=== PATIENT | male | born 1950 | race Caucasian/White ===

== ENCOUNTER 2019-09-30 15:35 | Emergency (ER) | payer MEDICARE, OTHER ==
[~2019-09-30] VITALS: Ht 182.9 cm; Wt 78.0 kg
[2019-09-30 16:04] LABS: BASOPHILS # (AUTO) 0.1 K/uL (0.0-8.0); BASOPHILS % (AUTO) 1.1 % (0.0-2.0); EOSINOPHILS # (AUTO) 0.1 K/uL (0.0-0.7); EOSINOPHILS % (AUTO) 1.2 % (0.0-7.0); HEMATOCRIT 45.9 % (36.7-47.1); HEMOGLOBIN 15.6 g/dL (12.5-16.3); LYMPHOCYTES # (AUTO) 4.1 K/uL (20.0-40.0); LYMPHOCYTES % (AUTO) 35.3 % (20.5-51.5); MEAN CORPUSCULAR HEMOGLOBIN 29.8 uug (23.8-33.4); MEAN CORPUSCULAR HGB CONC 34 g/dL (32.5-36.3); MEAN CORPUSCULAR VOLUME 87.9 fL (73.0-96.2); MONOCYTES # (AUTO) 0.8 K/uL (2.0-10.0); MONOCYTES % (AUTO) 6.8 % (0.0-11.0); NEUTROPHILS # (AUTO) 6.5 K/uL (1.8-8.9); NEUTROPHILS % (AUTO) 55.6 % (38.5-71.5); PLATELET COUNT (AUTO) 252 K/uL (152-348); RED BLOOD CELL COUNT(AUTO) 5.22 MIL/uL (4.06-5.63); WHITE BLOOD COUNT (AUTO) 11.7 K/uL (3.6-10.2)
[2019-09-30 16:11] LABS: CARBON DIOXIDE 29 mmol/L (21-32); CHLORIDE 105 mmol/L (98-107); CREATININE 1.6 mg/dL (0.6-1.3); GLUCOSE 111 mg/dL (74-106); POTASSIUM 3.9 mmol/L (3.5-5.1); UREA NITROGEN, BLOOD 22 mg/dL (7-18)
--- NOTE | 2019-09-30 16:13 | NUR ---
PATIENT IS FROM [facility]. HE IS A/A/OX3 IN NO DISTRESS. STATES HE HAS AN INFECTION ON HIS THUMB AND WAS ON ANTIBIOTICS FOR IT WHICH HE BELIEVED WAS 'TOO MUCH".
[2019-09-30 16:16] LABS: ALANINE AMINOTRANSFERASE 29 U/L (16-63); ALKALINE PHOSPHATASE 76 U/L (50-136); ASPARTATE AMINOTRANSFERASE 23 U/L (15-37); BILIRUBIN,DIRECT 0.1 mg/dL (0.0-0.2); BILIRUBIN,TOTAL 0.3 mg/dL (0.2-1.0); TOTAL PROTEIN, SERUM 7.4 g/dL (6.4-8.2)
[2019-09-30 16:17] LABS: ACETAMINOPHEN < 2.0 ug/mL (10-30)
[2019-09-30 16:18] LABS: ETHANOL < 3 MG/DL (0-0)
--- NOTE | 2019-09-30 16:30 | NUR ---
PATIENT STATES HE HAS 2 DAUGHTERS AND WANTS TO SEE THEM ONCE HE IS HEALED FROM HIS HEART SURGERY. STATES HE DOES NOT UNDERSTAND WHY HE IS IN THE HOSPITAL. I TOLD HIM THERE IS REPORT OF HIM NOT EATING OR TAKING HIS MEDICATIONS AND HE SAID HE ATE TODAY AND EATS ON "MY SCHEDULE" AND THE ONLY MEDICINE HE REFUSED WAS ANTIBIOTIC WHICH HE FELT CAUSED HIM A FEW EPISODES OF DIARRHEA. I ASKED HIM IF HE HAS PLANS TO HURT HIMSELF OR NOT CARE FOR HIMSELF AND HE SAID "NO WAY, WHY WOULD I HAVE SURGERY IF I DONT WANT TO BE OK? I HAVE FAMILY AND LOVE THEM AND WANT TO SEE THEM ONCE IM RELEASED". TONY ASTER IS AWARE OF REASON WHY HE WAS SENT HERE AND IS APPROVING FOR HIM TO GO BACK TO [place] BASED ON HER AND DR CHATMAN EVALUATION AND MEDICAL SCREENING EXAM. I CALLED [facility] AND NOTIFIED THE NURSING STAFF THAT HE WILL BE RETURNING AND THAT EXAM WAS COMPLETED BY AND OTHERS....
[2019-09-30] MEDS ORDERED: ALPR0.255 PO (16:36)
[2019-09-30] MEDS ORDERED: BUPR-319 PO (16:36)
[2019-09-30] MEDS ORDERED: ASPI-612 PO (16:36)
[2019-09-30] MEDS ORDERED: QUET100T PO (16:36)
[2019-09-30] MEDS ORDERED: TRAZ-182 PO (16:36)
[2019-09-30] MEDS ORDERED: TADA5TAB2 PO (16:36)
[2019-09-30] MEDS ORDERED: NAPR-1192 PO (16:36)
[2019-09-30] MEDS ORDERED: ICOS1CAP PO (16:36)
[2019-09-30] MEDS ORDERED: ESOM40CA PO (16:36)
[2019-09-30] MEDS ORDERED: LEVA0.6320 IH (16:36)
[2019-09-30] MEDS ORDERED: LOVA20TA2 PO (16:36)
[2019-09-30] MEDS ORDERED: FINA5TAB11 PO (16:36)
[2019-09-30] MEDS ORDERED: CEPH500C2 PO (16:36)
[2019-09-30] MEDS ORDERED: EZET10TA15 PO (16:36)
[2019-09-30] MEDS ORDERED: ZOLP10TA2 PO (16:36)
[2019-09-30] MEDS ORDERED: ACET-73 PO (16:36)
[2019-09-30] MEDS ORDERED: METO25TA6 PO (16:36)
[2019-09-30] MEDS ORDERED: TRIA60LO8 TP (16:36)
[2019-09-30] MEDS ORDERED: CYCL5TAB PO (16:36)
[2019-09-30] MEDS ORDERED: KETO15CR2 TP (16:36)
[2019-09-30] MEDS ORDERED: ALFU10TA10 PO (16:36)
[2019-09-30] MEDS ORDERED: NITR0.4T48 SL (16:36)
[2019-09-30] MEDS ORDERED: ISOS30TA6 PO (16:36)
--- NOTE | 2019-09-30 16:50 | NUR ---
COVID SWAB DONE AND SENT TO LAB
--- NOTE | 2019-09-30 17:49 | NUR ---
PATIENT ASKED FOR TAXI TO RETURN TO [facility] WHICH I CALLED FOR HIM, HE PAID FOR IT. PATIENT IS COOPERATIVE AND CALM. DC AND FOLLOW UP INSTRUCTIONS GIVEN HELEN EXPLAINED TO PATIENT WHO STATES HE UNDERSTANDS ALL INSTRUCTIONS.
== END 2019-09-30 17:51 ==
LOC: ER 15:40
DX: Z00.8 Encounter for other general examination (principal); Z91.14 Patient's other noncompliance with medication regimen; N28.9 Disorder of kidney and ureter, unspecified; S60.011A Contusion of right thumb without damage to nail, initial encounter; X58.XXXA Exposure to other specified factors, initial encounter; Y92.89 Other specified places as the place of occurrence of the external cause; F50.89 Other specified eating disorder; E78.5 Hyperlipidemia, unspecified; Z95.1 Presence of aortocoronary bypass graft; J45.909 Unspecified asthma, uncomplicated; Z79.899 Other long term (current) drug therapy; I44.4 Left anterior fascicular block; Z20.828 Contact with and (suspected) exposure to other viral communicable diseases
CPT/HCPCS: 36415; 80048; 80076; 80307; 80329; 85025; 93005; 99284; G0480; U0003; A4663